=== PATIENT | male | born 1965 | race Caucasian/White ===

== ENCOUNTER 2024-11-04 10:24 | Emergency (ER) | payer OTHER, SELFPAY ==
[2024-11-04 10:33] VITALS: BP 127/77
--- NOTE | 2024-11-04 10:43 | ED.GENMED ---
History of Present Illness
General
Chief Complaint: Back Pain
Source: patient
Exam Limitations: none
Time Seen by Provider: 11/04/24 10:38
History of Present Illness
History of Present Illness:
See MDM
Past History
Past History
ED Past Medical History: None
ED Past Surgical History: None
Phy Exam
Physical Exam
Physical Exam:
See MDM
Course
Orders/Labs/Results
Orders:
Orders
11/04/24 10:42
CT Abd/pel Without Iv Or Oral Urgent
Comment:
Reason For Exam: R flank pain
Ketorolac [Toradol] 30 mg IM NOW STA
Ondansetron Orally Disint [Zofran Odt (Orally Disintegrating)] 4 mg PO NOW STA
Oxycodone/Acetaminophen [Percocet 5/325] 1 tablet PO NOW STA
11/04/24 10:51
Urinalysis Reflex To Culture Urgent
Date Specimen was Collected: 11/04/24
Time Specimen was Collected: 10:43
Vital Signs
Initial and Last Documented VS:
Initial Vital Signs
Temp Pulse Resp BP Pulse Ox
98.2 F 79 16 127/77 98
11/04/24 10:33 11/04/24 10:33 11/04/24 10:33 11/04/24 10:33 11/04/24 10:33
Last Documented Vital Signs
Temp Pulse Resp BP Pulse Ox
98.2 F 79 16 127/77 98
11/04/24 10:33 11/04/24 10:33 11/04/24 10:33 11/04/24 10:33 11/04/24 10:33
MDM/Problems Addressed
Differential Diagnosis Includes:
HPI and MDM Narrative:
59-year-old male presenting for evaluation of right flank pain. It was sudden onset while sleeping. Since then, the pain has been somewhat dull but intermittent. He has had a kidney stone before but it was about 30 years ago. He denies trouble
urinating
Given the pain distribution and history, will obtain CT rule out kidney stone
Physical exam
General: Mildly uncomfortable
HEENT: protecting airway
Neck: appears supple
CV: No evidence of cyanosis
Resp: No accessory muscle use
Back: Mild right CVA tenderness. No rash
Abd: Non-distended
Extremities: No deformities
Neuro: alert
Psych: Normal affect
Skin: Intact
Problems Addressed including Acute and Chronic Conditions affecting care:
1. Right flank pain
Acuity: acute
Prognosis: stable
Details: Likely in setting of kidney stone. Will obtain CT. Will obtain urinalysis. Patient given pain medicine
Updates
CT shows small stone in the right kidney. There is no obstructing calculi. On reexamination, patient states he is feeling completely better. Discussed follow-up with his urologist
Differential Diagnosis (but not limited to): Kidney stone, renal colic, pyelonephritis
Testing considered: Kidney ultrasound
Drug therapy (if applicable): OTC meds, please see d/c instruction regarding Rx drugs
Amount and/or Complexity of Data Reviewed
Clinical info obtained from: Patient
External data reviewed: N/A
Labs I independently reviewed (but not limited to): N/A
Radiology: The CT scan was personally and independently reviewed. In addition, official CT report reviewed.
Pulse Ox: not hypoxic
EKG independently reviewed: N/A
Partner Marketing Manager: N/A
Critical Care: N/A
Risk of Complication:
Social Determinants of health: Good social support
Discussed with other providers: N/A
Escalation of Care includes Admit/Obs: After being observed in the Emergency Department, pt stable for discharge.
Occasional wrong word or 'sound a like' substitutions may have occurred due to the inherent limitations of voice recognition software. Read the chart carefully and recognize, using context, where substitutions have occurred.
*Critical Care Note
Total Time (30-74mins, 75-104mins- exclusive of procedures): Not Applicable
ED Attending Note
-
Portions of this chart may have been created with voice recognition software.� Occasional wrong word or��sound alike� substitutions may have occurred due to the inherent limitations of voice recognition software.
Discharge Plan
Departure
Patient Disposition: Home (Routine Discharge)
Date of Disposition: 11/04/24
Time of Disposition: 13:57
Patient with high blood pressure during this ER visit?: No
Discharge Problem:
Acute right flank pain
Referrals:
Cornelio Byrd, DO [Family Provider] -
Activity Restrictions/Additional Instructions:
Please return for any worsening symptoms.
You may return at any time if you have further concerns.
Please follow up with your doctor at the first available appointment, preferably this week.
Thank you for choosing [facility].
Interventions
Interventions:
*Risk Screen - Suicide Last Done: 11/04/24 10:33
*General Assessment Last Done: 11/04/24 10:48
*Neglect/Abuse Screening Last Done: 11/04/24 10:33
ED- Fall Risk Assessment Last Done: 11/04/24 11:05
*ED COVID-19 Vaccine History Last Done: 11/04/24 10:48
ED-Musculoskeletal Assessment Last Done: 11/04/24 11:05
Discharge Date and Time
Print Language: KAZAKH
[2024-11-04] MEDS: ZOFRAN ODT (ORALLY DISINTEGRATING) 4 MG PO ×2 (10:47)
[2024-11-04] MEDS: TORADOL 30 MG IM (10:47)
[2024-11-04] MEDS: PERCOCET 5/325 1 TABLET PO (10:47)
[2024-11-04 11:18] LABS: Urine Albumin Negative (Neg - Trace); Urine Bilirubin Negative (Negative); Urine Character Clear (Clear); Urine Color Yellow; Urine Glucose Negative (Negative); Urine Ketone Negative (Negative); Urine Leukocyte Negative (Negative); Urine Nitrite Negative (Negative); Urine Occult Blood Negative (Negative); Urine Urobilinogen Negative (Neg - 1+)
[2024-11-04 12:00] VITALS: BP 120/62
== END 2024-11-04 14:18 | disposition home or self-care (01) ==
LOC: EMR 10:24
PROVIDERS: EMERGENCY PHYSICIAN Student in an Organized Health Care Education/Training Program; FAMILY PHYSICIAN Family Medicine
DX: R10.9 Unspecified abdominal pain (principal)
CPT/HCPCS: 99284; 96372; 74176; 81003

== ENCOUNTER 2025-08-23 02:43 | Emergency (ER) | payer OTHER, SELFPAY ==
[2025-08-23 02:45] VITALS: BP 180/94
[2025-08-23 03:05] VITALS: BMI 33.2
[2025-08-23 03:19] VITALS: BP 161/96
--- NOTE | 2025-08-23 03:51 | ED.GENMED ---
History of Present Illness
General
Chief Complaint: Sleep Disturbances
Source: patient
Exam Limitations: none
Time Seen by Provider: 08/23/25 03:41
Nursing documentation reviewed up to this point in time: agreed with
History of Present Illness
History of Present Illness:
The patient is a 60-year-old male with pmh of hypothyroidism, htn, who presents with difficulty sleeping and a choking episode during the night and concerns of difficulty sleeping for the last few weeks. The patient reports experiencing excessive
stress due to work, making it challenging to find a comfortable position for sleep. Reports that he is awake during the night anxious about work. The patient described waking up multiple times per night. He reports waking up around 4 AM and
attempting to sleep against the headboard, during which he experienced excessive belching�approximately 10 gulps of air�and a sensation of gastric distention. Additionally, the patient mentioned memory lapses, notably not recalling saying goodbye
to his mother during a recent visit. The patient denies historical episodes of such nature and has not undergone a sleep study despite the suggestion.
The patient associates some of these symptoms with excessive workload and stress, stating that he has been working long hours (12 to 15-hour days) regularly for the past two and a half weeks. He is experiencing general anxiety and a lack of energy,
describing an inability to wake up for work if required. Despite the general fatigue, theres no history of feeling unsteady while walking or difficulty maintaining balance. At this moment, he notes anxiety but denies swelling in his lower
extremities, chest pain, shortness of breath, abdominal pain, burning in the chest/sensation of reflux. Patient has no personal cardiac hx.
Past History
Past History
ED Past Medical History: None
ED Past Surgical History: None
Review of Systems
Review of Systems
All Other Systems: ROS reviewed and negative except as documented in HPI and ROS
Phy Exam
General Physical Exam
General Presentation: well appearing and no apparent distress
General age: appears stated age
General Skin: warm and dry
General Habitus: normal
General Hydration: appears well hydrated
ENT Exam
Additional ENT: No tonsillar hypertrophy
Cardiovascular Exam
Cardiovascular Exam: regular rate/rhythm, no edema and no murmur
Pulmonary Exam
Pulmonary Exam: lungs clear, no respiratory distress, no crackles, no rhonchi and no wheezing
Gastrointestinal Exam
Gastrointestinal Exam: non tender, soft and non distended
Neurological Exam
Neurological Exam: alert, oriented x3 and CN II-XII intact
Skin Exam
Skin Exam: normal color and warm/dry
Psychiatric Exam
Psychiatric Exam: anxious
Comment
comment:
no suicidal or homicidal ideations
Course
Orders/Labs/Results
Orders:
Orders
08/23/25 04:20
CR Chest - 2 Views Urgent
Comment:
Reason For Exam: gasping for air, transient sob
08/23/25 04:58
Complete Blood Count/With Diff Urgent
Comprehensive Metabolic Panel Urgent
TSH Reflex To Free T4 Urgent
08/23/25 07:06
HydrOXYZINE [Atarax] 25 mg PO NOW STA
Abnormal Lab Results
08/23/25
04:58
RBC 6.74 H 10^6/uL
(4.70-6.10)
MCV 61.6 L fL
(80.0-94.0)
MCH 19.7 L pg
(27.0-31.0)
MCHC 32.0 L g/dL
(33.0-37.0)
RDW 18.3 H %
(11.5-14.5)
Neutrophils % 76.1 H %
(42.2-75.2)
Lymphocytes % 18.0 L %
(20.5-51.1)
Sodium 133 L mmol/L
(135-145)
Glucose 109 H mg/dl
(70-99)
08/23/25 04:58
08/23/25 04:58
Vital Signs
Initial and Last Documented VS:
Initial Vital Signs
Temp Pulse Resp BP Pulse Ox
97.4 F 80 20 180/94 97
08/23/25 02:45 08/23/25 02:45 08/23/25 02:45 08/23/25 02:45 08/23/25 02:45
Last Documented Vital Signs
Temp Pulse Resp BP Pulse Ox
97.4 F 73 17 152/88 96
08/23/25 02:45 08/23/25 05:45 08/23/25 05:45 08/23/25 05:00 08/23/25 05:45
MDM/Problems Addressed
Differential Diagnosis Includes:
The Differential Diagnosis includes, in no particular order and is not limited to:
1. Sleep apnea
2. Gastroesophageal reflux disease (GERD)
3. Anxiety disorder
4. Insomnia secondary to work-related stress
5. Hypothyroidism
6. Neurocognitive disorder due to sleep deprivation
7. Psychological stress reaction
8. Obstructive lung disease
9. Metabolic disorder (electrolyte imbalance)
10. Cardiovascular disease contributing to symptoms of air hunger.
MDM/Problems Addressed:
The patient is a 60-year-old male with pmh of hypothyroidism, htn, who presents with difficulty sleeping and a choking episode during the night and concerns of difficulty sleeping for the last few weeks. The patient reports experiencing excessive
stress due to work, making it challenging to find a comfortable position for sleep. Reports that he is awake during the night anxious about work. The patient described waking up multiple times per night.
Patient's notes excessive daily snoring. Patient had a moment last night where he gasped for breath. He has had associated memory issues. PCP referred him for sleep study which he has not yet completed.
He has no signs of fluid overload on exam, CXr shows no effusion no pulmonary edema.
Blood work unremarkable.
Will trial hydroxyzine as needed for anxiety
Stressed importance of follow up with PCP for evaluation for potential SSRI and continued prescription of anxiolytics
Strongly suspect sleep apnea
Discussed importance of sleep study
Pt stable for discharge
Will call PCP
*Pulse Oximetry
SaO2: 98
Oxygen Mode of Delivery: Room air
Patient hypoxic: no
*Critical Care Note
Total Time (30-74mins, 75-104mins- exclusive of procedures): Not Applicable
ED Attending Note
-
Portions of this chart may have been created with voice recognition software.� Occasional wrong word or��sound alike� substitutions may have occurred due to the inherent limitations of voice recognition software.
Discharge Plan
Departure
Patient Disposition: Home (Routine Discharge)
Date of Disposition: 08/23/25
Time of Disposition: 06:50
Patient with high blood pressure during this ER visit?: Yes
Condition: Good
Discharge Problem:
Disturbance of sleep
Instructions: Insomnia (DC), BLOOD PRESSURE
Prescriptions:
New
hydroxyzine HCl 25 mg tablet
25 mg PO QID PRN (Reason: anxiety) Qty: 10 0RF
No Action
levothyroxine 200 mcg Tablet
200 mcg PO DAILY
loratadine 10 mg Tablet
10 mg PO DAILY
valsartan 160 mg Tablet
160 mg PO DAILY
Vitamin D3 100 mcg (4,000 unit) Capsule
4,000 unit PO DAILY
Referrals:
Minnie Dawkins DO [Active, Pulmonary Medicine] - Call in 1-3 days for appt
Cornelio Byrd DO [Family Provider, Family Practice]
Stand Alone Forms: Return to Work
Activity Restrictions/Additional Instructions:
Please follow up with your primary care provider.
Please call the attached number to schedule appointment with sleep medicine, please follow up with your primary care provider regarding your ongoing anxiety.
PLEASE RETURN TO THE ER SHOULD YOU DEVELOP CHEST PAIN, SHORTNESS OF BREATH, WEAKNESS ON ONE SIDE BODY VERSUS OTHER, INABILITY AMBULATE, FALLS, COUGHING UP BLOOD, UPPER ABDOMINAL PAIN, INTRACTABLE NAUSEA OR VOMITING, OR ANY OTHER SIGNS OR SYMPTOMS
WORRISOME TO YOU.
Interventions
Interventions:
*Risk Screen - Suicide Last Done: 08/23/25 02:45
*General Assessment Last Done: 08/23/25 03:05
*Neglect/Abuse Screening Last Done: 08/23/25 02:45
*ED- Fall Risk Assessment Last Done: 08/23/25 03:05
*ED COVID-19 Vaccine History Last Done: 08/23/25 03:05
*ED Influenza Vaccine History Last Done: 08/23/25 03:05
*Nursing Disposition Last Done: 08/23/25 07:10
ED-Suicide Risk Assessment Last Done: 08/23/25 03:05
ED- Neurological Assessment Last Done: 08/23/25 03:05
ED-Psychological Assessment Last Done: 08/23/25 03:05
Discharge Date and Time
Discharge Date/Time: 08/23/25 07:10
Print Language: MONGOLIAN
[2025-08-23 04:00] VITALS: BP 154/99
[2025-08-23 05:00] VITALS: BP 152/88
[2025-08-23 05:24] LABS: Hematocrit 41.5 % (39.0-52.0); Hemoglobin 13.3 g/dL (13.0-18.0); Mean Corp Hgb Conc. 32.0 g/dL (33.0-37.0); Mean Corpuscular Volume 61.6 fL (80.0-94.0); Nucleated Red Blood Cells % 0 % (-); Platelet Count 172 10^3/uL (130-400); Red Cell Dist. Width 18.3 % (11.5-14.5)
[2025-08-23 05:39] LABS: ALT (SGPT) 33 U/L (0-50); AST (SGOT) 27 U/L (17-59); Albumin 4.4 g/dl (3.5-5.0); Alkaline Phosphatase 56 U/L (38-126); Blood Urea Nitrogen 15 mg/dl (9-20); Calcium 8.7 mg/dl (8.4-10.2); Carbon Dioxide 23 mmol/L (22-30); Chloride 104 mmol/L (98-107); Estimated Creatinine Clearance 87 ml/min; Glucose 109 mg/dl (70-99); Potassium 4.1 mmol/L (3.5-5.1); Sodium 133 mmol/L (135-145); Total Protein 7.2 g/dl (6.3-8.2); eGFR > 60.00
[2025-08-23] MEDS: ATARAX 25 MG PO (07:12)
== END 2025-08-23 07:10 | disposition home or self-care (01) ==
LOC: EMR 02:43
PROVIDERS: Physician Assistant; EMERGENCY PHYSICIAN Emergency Medicine; FAMILY PHYSICIAN Family Medicine
DX: G47.9 Sleep disorder, unspecified (principal); E03.9 Hypothyroidism, unspecified; I10 Essential (primary) hypertension; Z56.6 Other physical and mental strain related to work
CPT/HCPCS: 99284; 71046; 80053; 84443; 85025